=== PATIENT | female | born 1975 | race Caucasian/White ===

== ENCOUNTER 2016-12-27 15:25 | Emergency (ER) | payer OTHER ==
[~2016-12-27] VITALS: Ht 162.6 cm; Wt 103.4 kg
[~2016-12-27 15:25] MED LIST: ACET50TA PO; ANUS2.5C2 PR; DOCU10CA PO; FLINCHW5 PO; LABE20TAB PO; MOM30SS PO; MOTR200T44 PO; PRIL40CA PO; TRAM100T PO
[2016-12-27 15:26] VITALS: BP 185/102
[2016-12-27] MEDS ORDERED: NAPR500T PO (17:47)
[2016-12-27] MEDS ORDERED: CYCL10TA PO (17:47)
== END 2016-12-27 18:10 | disposition home or self-care (01) ==
LOC: M ED 17:44
DX: M62.838 Other muscle spasm (principal); M25.511 Pain in right shoulder; Z91.030 Bee allergy status; I10 Essential (primary) hypertension; J45.909 Unspecified asthma, uncomplicated; K21.9 Gastro-esophageal reflux disease without esophagitis; E11.9 Type 2 diabetes mellitus without complications

== ENCOUNTER 2017-11-14 18:05 | Emergency (ER) | payer OTHER | END 2017-11-14 19:48 | disposition home or self-care (01) | LOC: M ED 18:05 | DX: S00.03XA Contusion of scalp, initial encounter (principal); S13.4XXA Sprain of ligaments of cervical spine, initial encounter; S60.222A Contusion of left hand, initial encounter; H60.92 Unspecified otitis externa, left ear; W19.XXXA Unspecified fall, initial encounter; Y92.098 Other place in other non-institutional residence as the place of occurrence of the external cause; I10 Essential (primary) hypertension; G43.909 Migraine, unspecified, not intractable, without status migrainosus; F17.210 Nicotine dependence, cigarettes, uncomplicated; Z91.030 Bee allergy status | CPT/HCPCS: 73130 ==

== ENCOUNTER 2018-01-29 17:15 | Emergency (ER) | payer OTHER ==
[2018-01-29] MEDS: NORCO, ANEXSIA 5/325MG TABLET (HYDROcodone/ACETAMINOPHEN) PO (19:46)
== END 2018-01-29 20:08 | disposition home or self-care (01) ==
LOC: M ED 17:15
DX: S22.32XA Fracture of one rib, left side, initial encounter for closed fracture (principal); R05 Cough; W18.09XA Striking against other object with subsequent fall, initial encounter; Y92.9 Unspecified place or not applicable; Y93.9 Activity, unspecified; Y99.9 Unspecified external cause status; I10 Essential (primary) hypertension; E66.9 Obesity, unspecified; F17.200 Nicotine dependence, unspecified, uncomplicated; Z91.030 Bee allergy status
CPT/HCPCS: 71101

== ENCOUNTER 2018-02-15 17:58 | Emergency (ER) | payer OTHER ==
[2018-02-15] MEDS: ACETAMINOPHEN 325 MG TAB PO (18:04)
== END 2018-02-15 20:00 | disposition home or self-care (01) ==
LOC: M ED 17:58
DX: S22.32XA Fracture of one rib, left side, initial encounter for closed fracture (principal); S02.32XA Fracture of orbital floor, left side, initial encounter for closed fracture; Y04.8XXA Assault by other bodily force, initial encounter; Y92.410 Unspecified street and highway as the place of occurrence of the external cause; R06.02 Shortness of breath; S22.31XD Fracture of one rib, right side, subsequent encounter for fracture with routine healing; I10 Essential (primary) hypertension; E11.9 Type 2 diabetes mellitus without complications; J45.909 Unspecified asthma, uncomplicated; K21.9 Gastro-esophageal reflux disease without esophagitis; Z86.718 Personal history of other venous thrombosis and embolism; F17.210 Nicotine dependence, cigarettes, uncomplicated; Z91.030 Bee allergy status
CPT/HCPCS: 71101

== ENCOUNTER 2018-04-17 20:39 | Emergency (ER) | payer OTHER ==
[2018-04-17] MEDS: NORCO, ANEXSIA 5/325MG TABLET (HYDROcodone/ACETAMINOPHEN) PO (22:36)
== END 2018-04-18 00:05 | disposition home or self-care (01) ==
LOC: M ED 04-18 00:05
DX: S62.630A Displaced fracture of distal phalanx of right index finger, initial encounter for closed fracture (principal); M25.532 Pain in left wrist; W21.05XA Struck by basketball, initial encounter; Y92.830 Public park as the place of occurrence of the external cause; E11.9 Type 2 diabetes mellitus without complications; I10 Essential (primary) hypertension; J45.909 Unspecified asthma, uncomplicated; K21.9 Gastro-esophageal reflux disease without esophagitis; M32.9 Systemic lupus erythematosus, unspecified; F17.200 Nicotine dependence, unspecified, uncomplicated; Z79.899 Other long term (current) drug therapy; Z91.030 Bee allergy status
CPT/HCPCS: 73110

== ENCOUNTER 2018-06-21 22:28 | Emergency (ER) | payer OTHER | END 2018-06-21 23:02 | disposition left against medical advice (07) | LOC: M ED 22:28 | DX: Z53.29 Procedure and treatment not carried out because of patient's decision for other reasons (principal) ==

== ENCOUNTER → 2018-07-12 | Outpatient (REF) | payer OTHER ==
[2018-07-12 17:09] LABS: AMORPHOUS SEDIMENT SMALL (NEGATIVE); APPEARANCE, URINE HAZY (CLEAR); BACTERIA, URINE AUTO 1+ (NEGATIVE); BILIRUBIN, URINE AUTO NEGATIVE (NEGATIVE); BLOOD, URINE BLOOD 1+ (NEGATIVE); COLOR, URINE YELLOW (YELLOW); GLUCOSE, URINE (UA) AUTO NEGATIVE (NEGATIVE); KETONE, URINE AUTO NEGATIVE (NEGATIVE); LEUKOCYTE ESTERASE, URINE AUTO NEGATIVE (NEGATIVE); MUCUS, URINE SMALL (NEGATIVE); NITRITE, URINE AUTO POSITIVE (NEGATIVE); PROTEIN, URINE AUTO NEGATIVE (NEGATIVE); RBC, URINE AUTO 1 /HPF (0-3); SPECIFIC GRAVITY URINE AUTO 1.009 (1.002-1.035); SQUAMOUS EPITHELIAL CELL UR AU 1 /HPF (0-6); UROBILINOGEN, URINE AUTO 0.2 mg/dL (0.0-2.0); WBC, URINE AUTO 3 /HPF (0-3)
== END ==
LOC: M LAB REF 16:43
DX: N39.0 Urinary tract infection, site not specified (principal)
CPT/HCPCS: 81001

== ENCOUNTER 2019-03-22 14:33 | Emergency (ER) | payer OTHER ==
[~2019-03-22] VITALS: Ht 162.6 cm; Wt 106.8 kg
[~2019-03-22 14:33] MED LIST changes: -ACET50TA PO; +AUGM875T28 PO; +CIPRODEX AS; +CYCL10TA PO; +HYDR-3715 PO; +IBUP-1022 PO; +MAPA500T2 PO; +NAPR-837 PO; +PRED20TA PO; +ROBA500T PO; +TESS100C PO; -TRAM100T PO; +TRAM100T21 PO; +VENTAER
[2019-03-22] MEDS ORDERED: NAPR-885 PO (14:40)
[2019-03-22] MEDS ORDERED: HYDR25TAB PO (14:40)
[2019-03-22 14:43] VITALS: BP 158/92
[2019-03-22] MEDS ORDERED: PENI500T PO (15:03)
== END 2019-03-22 15:23 | disposition home or self-care (01) ==
LOC: M ED 14:33
DX: J02.0 Streptococcal pharyngitis (principal); I10 Essential (primary) hypertension; F17.200 Nicotine dependence, unspecified, uncomplicated; Z91.030 Bee allergy status; Z79.899 Other long term (current) drug therapy; Z79.1 Long term (current) use of non-steroidal anti-inflammatories (NSAID)

== ENCOUNTER → 2019-06-05 | Outpatient (REF) | payer OTHER ==
[~2019-06-05] MED LIST changes: +HYDR25TAB PO; +NAPR-885 PO; +PENI500T PO
[2019-06-05 18:41] LABS: APPEARANCE, URINE CLOUDY (CLEAR); BACTERIA, URINE AUTO 3+ (NEGATIVE); BILIRUBIN, URINE AUTO NEGATIVE (NEGATIVE); BLOOD, URINE BLOOD 1+ (NEGATIVE); COLOR, URINE YELLOW (YELLOW); GLUCOSE, URINE (UA) AUTO NEGATIVE (NEGATIVE); KETONE, URINE AUTO NEGATIVE (NEGATIVE); LEUKOCYTE ESTERASE, URINE AUTO NEGATIVE (NEGATIVE); MUCUS, URINE SMALL (NEGATIVE); NITRITE, URINE AUTO POSITIVE (NEGATIVE); PROTEIN, URINE AUTO NEGATIVE (NEGATIVE); RBC, URINE AUTO 2 /HPF (0-3); SPECIFIC GRAVITY URINE AUTO 1.018 (1.002-1.035); SQUAMOUS EPITHELIAL CELL UR AU 1 /HPF (0-6); UROBILINOGEN, URINE AUTO 0.2 mg/dL (0.0-2.0); WBC, URINE AUTO 1 /HPF (0-3)
== END ==
LOC: M LAB REF 17:22
PROVIDERS: ATTEND Physician Assistant
DX: N39.0 Urinary tract infection, site not specified (principal)

== ENCOUNTER 2019-11-17 08:28 | Emergency (ER) | payer OTHER ==
[~2019-11-17] VITALS: Ht 162.6 cm; Wt 99.2 kg
[2019-11-17] MEDS ORDERED: CYCLOBENZAPRINE 5MG TABLET PO ONE (09:30)
[2019-11-17] MEDS ORDERED: KETOROLAC TROMETHAMINE 10 MG TAB PO ONE (10:00)
[2019-11-17 10:06] VITALS: BP 185/120
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
[2019-11-17] MEDS ORDERED: KETO10TAB PO (10:42)
[2019-11-17] MEDS ORDERED: CYCL5TAB PO (10:42)
== END 2019-11-17 10:51 | disposition home or self-care (01) ==
LOC: M ED 08:28
DX: S09.90XA Unspecified injury of head, initial encounter (principal); S05.12XA Contusion of eyeball and orbital tissues, left eye, initial encounter; M62.830 Muscle spasm of back; Y04.0XXA Assault by unarmed brawl or fight, initial encounter; Y92.89 Other specified places as the place of occurrence of the external cause; Y93.9 Activity, unspecified; Y99.9 Unspecified external cause status; E11.9 Type 2 diabetes mellitus without complications; I10 Essential (primary) hypertension; K21.9 Gastro-esophageal reflux disease without esophagitis; M32.9 Systemic lupus erythematosus, unspecified; G43.909 Migraine, unspecified, not intractable, without status migrainosus; J45.909 Unspecified asthma, uncomplicated; F17.200 Nicotine dependence, unspecified, uncomplicated; Z79.899 Other long term (current) drug therapy; Z91.030 Bee allergy status

== ENCOUNTER 2020-06-17 13:19 | Emergency (ER) | payer OTHER ==
[~2020-06-17] VITALS: Ht 162.6 cm; Wt 112.5 kg
[~2020-06-17 13:19] MED LIST changes: +CYCL-707 PO; -CYCL10TA PO; +CYCL5TAB PO; +KETO10TAB PO
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
[2020-06-17] MEDS ORDERED: KETOROLAC TROMETHAMINE 10 MG TAB PO ONE (16:30)
[2020-06-17] MEDS ORDERED: amLODIPine 10 MG TAB PO ONE (16:45)
--- NOTE | 2020-06-17 17:16 | REPVR ---
PROCEDURE INFORMATION: Exam: US Duplex Right Lower Extremity Veins, Limited Exam date and time: 06/17/2020 5:03 PM Age: 45 years old Clinical indication: Pain; Leg, upper; Right; Additional info: Swelling/pain TECHNIQUE: Imaging protocol: Real-time Duplex ultrasound of the Right Lower Extremity with 2-D morgan scale, color Doppler flow and spectral waveform analysis with image documentation. Limited exam was focused on the right lower extremity veins. COMPARISON: No relevant prior studies available. FINDINGS: Right deep veins: Unremarkable. The common femoral, femoral, proximal profunda femoral and popliteal veins are patent without thrombus. Normal Doppler waveforms. Normal compressibility and/or augmentation response. The femoral vein mid to distal is duplicated. Right superficial veins: Unremarkable. Saphenofemoral junction is patent without thrombus. Soft tissues: Unremarkable. IMPRESSION: No evidence of deep vein thrombosis. Electronically signed by: Dante Warren On 06/17/2020 17:16:17 PM
[2020-06-17 17:24] VITALS: BP 210/96
[2020-06-17 17:35] LABS: BASO % 0.4 % (0.0-1.0); EOS # 0.2 10^3/uL (0.0-0.5); HEMATOCRIT 41.6 % (36.0-47.0); HEMOGLOBIN 13.6 g/dl (12.0-15.5); LYMPH # 2.2 10^3/uL (1.5-5.0); LYMPH % 31.4 % (24.0-44.0); MEAN CORPUSCULAR HEMOGLOBIN 31.1 pg (27.0-33.0); MEAN CORPUSCULAR HGB CONC 32.7 g/dl (32.0-36.5); MEAN CORPUSCULAR VOLUME 95.2 fl (80.0-96.0); MONO # 0.4 10^3/uL (0.0-0.8); MONO % 5.5 % (0.0-5.0); NEUTROPHILS # 4.1 10^3/uL (1.5-8.5); NEUTROPHILS % 59.4 % (36.0-66.0); PLATELET COUNT, AUTOMATED 266 10^3/uL (150-450); RED BLOOD COUNT 4.37 10^6/uL (4.00-5.40); WHITE BLOOD COUNT 6.9 10^3/uL (4.0-10.0)
[2020-06-17 18:10] VITALS: BP 200/92
[2020-06-17] MEDS ORDERED: BACT800T5 PO (18:25)
[2020-06-17] MEDS ORDERED: LISI20TA20 PO (18:25)
--- NOTE | 2020-06-18 20:51 | ECGEPIP ---
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
== END 2020-06-17 18:38 | disposition home or self-care (01) ==
LOC: M ED 13:19
DX: M25.561 Pain in right knee (principal); I10 Essential (primary) hypertension; R22.43 Localized swelling, mass and lump, lower limb, bilateral; N39.0 Urinary tract infection, site not specified; E66.9 Obesity, unspecified; E11.9 Type 2 diabetes mellitus without complications; R51 Headache; J45.909 Unspecified asthma, uncomplicated; K21.9 Gastro-esophageal reflux disease without esophagitis; F17.200 Nicotine dependence, unspecified, uncomplicated; Z79.899 Other long term (current) drug therapy; Z91.030 Bee allergy status

== ENCOUNTER → 2020-11-12 | Outpatient (REF) | payer OTHER ==
[~2020-11-12] MED LIST changes: +BACT800T5 PO; +CIPR7.5D5 AS; -CIPRODEX AS; +HYDR-3490 PO; -HYDR25TAB PO; +LISI20TA20 PO
[2020-11-12 18:31] LABS: APPEARANCE, URINE HAZY (CLEAR); BACTERIA, URINE AUTO 3+ (NEGATIVE); BILIRUBIN, URINE AUTO NEGATIVE (NEGATIVE); BLOOD, URINE BLOOD 2+ (NEGATIVE); COLOR, URINE YELLOW (YELLOW); GLUCOSE, URINE (UA) AUTO NEGATIVE (NEGATIVE); KETONE, URINE AUTO NEGATIVE (NEGATIVE); LEUKOCYTE ESTERASE, URINE AUTO NEGATIVE (NEGATIVE); MUCUS, URINE SMALL (NEGATIVE); NITRITE, URINE AUTO NEGATIVE (NEGATIVE); PROTEIN, URINE AUTO 1+ mg/dL (NEGATIVE); RBC, URINE AUTO 1 /HPF (0-3); SPECIFIC GRAVITY URINE AUTO 1.018 (1.002-1.035); SQUAMOUS EPITHELIAL CELL UR AU 2 /HPF (0-6); UROBILINOGEN, URINE AUTO 0.2 mg/dL (0.0-2.0); WBC, URINE AUTO 1 /HPF (0-3)
== END ==
LOC: M LAB REF 16:49
PROVIDERS: ATTEND Nurse Practitioner Family
DX: R30.0 Dysuria (principal)

== ENCOUNTER → 2020-11-27 | Outpatient (REF) | payer OTHER ==
[2020-11-27 17:54] LABS: BASO # 0.1 10^3/uL (0.0-0.2); BASO % 0.7 % (0.0-1.0); EOS # 0.1 10^3/uL (0.0-0.5); EOS % 1.5 % (0.0-3.0); HEMATOCRIT 45.4 % (36.0-47.0); HEMOGLOBIN 14.7 g/dl (12.0-15.5); LYMPH # 2.1 10^3/uL (1.5-5.0); LYMPH % 29.1 % (24.0-44.0); MEAN CORPUSCULAR HEMOGLOBIN 31.9 pg (27.0-33.0); MEAN CORPUSCULAR HGB CONC 32.4 g/dl (32.0-36.5); MEAN CORPUSCULAR VOLUME 98.5 fl (80.0-96.0); MONO # 0.5 10^3/uL (0.0-0.8); MONO % 6.5 % (2.0-8.0); NEUTROPHILS # 4.6 10^3/uL (1.5-8.5); NEUTROPHILS % 62.1 % (36.0-66.0); PLATELET COUNT, AUTOMATED 322 10^3/uL (150-450); RED BLOOD COUNT 4.61 10^6/uL (4.00-5.40); WHITE BLOOD COUNT 7.3 10^3/uL (4.0-10.0)
[2020-11-27 18:18] LABS: HEMOGLOBIN A1c 5.5 %
[2020-11-27 18:21] LABS: ALBUMIN 3.7 GM/DL (3.2-5.2); ALT/SGPT 99 U/L (12-78); BILIRUBIN,TOTAL 0.5 MG/DL (0.2-1.0); BLOOD UREA NITROGEN 15 MG/DL (7-18); CALCIUM LEVEL 9.7 MG/DL (8.5-10.1); CARBON DIOXIDE LEVEL 30 MEQ/L (21-32); CHLORIDE LEVEL 101 MEQ/L (98-107); CHOLESTEROL LEVEL 239 MG/DL (<200); CHOLESTEROL RISK RATIO 6.828 (<5); CREATININE FOR GFR 0.96 MG/DL (0.55-1.30); FERRITIN 124 NG/ML (8-252); FREE T4 1.19 NG/DL (0.76-1.46); GLOMERULAR FILTRATION RATE > 60.0 (>58); GLUCOSE, FASTING 86 MG/DL (70-100); HDL CHOLESTEROL 35 MG/DL (>40); IRON (FE) 79 UG/DL (50-170); LDL CHOLESTEROL 168 MG/DL (<100); MAGNESIUM LEVEL 1.8 MG/DL (1.8-2.4); NON-HDL-C 204 MG/DL; POTASSIUM SERUM 4.1 MEQ/L (3.5-5.1); SODIUM LEVEL 139 MEQ/L (136-145); THYROID STIMULATING HORMONE 0.861 uIU/ML (0.358-3.740); TOTAL IRON BINDING CAPACITY 376 UG/DL (250-450); TOTAL PROTEIN 8.2 GM/DL (6.4-8.2); TRIGLYCERIDES LEVEL 182 MG/DL (<150)
[2020-11-27 18:23] LABS: TOTAL 25(OH) VITAMIN D 11.6 NG/ML (30.0-100.0); VITAMIN B12 LEVEL 570 PG/ML
[2020-11-27 18:24] LABS: FOLATE 4.7 NG/ML
== END ==
LOC: M LAB REF 16:19
PROVIDERS: ATTEND Nurse Practitioner Family
DX: E66.9 Obesity, unspecified (principal); I10 Essential (primary) hypertension; F17.200 Nicotine dependence, unspecified, uncomplicated

== ENCOUNTER → 2021-02-03 | Outpatient (REF) | payer OTHER ==
[~2021-02-03] MED LIST changes: +AMLO1TAB25; +HYDR50TAB; +LISI20TA33; +METO1TAB7; +OMEP40CA97 PO; +VITA50005
[2021-02-03 13:08] LABS: BASO % 0.6 % (0.0-1.0); EOS # 0.2 10^3/uL (0.0-0.5); HEMATOCRIT 42.7 % (36.0-47.0); HEMOGLOBIN 14.3 g/dl (12.0-15.5); LYMPH # 1.4 10^3/uL (1.5-5.0); LYMPH % 22.7 % (24.0-44.0); MEAN CORPUSCULAR HEMOGLOBIN 33.4 pg (27.0-33.0); MEAN CORPUSCULAR HGB CONC 33.5 g/dl (32.0-36.5); MEAN CORPUSCULAR VOLUME 99.8 fl (80.0-96.0); MONO # 0.4 10^3/uL (0.0-0.8); MONO % 6.3 % (2.0-8.0); NEUTROPHILS # 4.2 10^3/uL (1.5-8.5); NEUTROPHILS % 66.9 % (36.0-66.0); PLATELET COUNT, AUTOMATED 308 10^3/uL (150-450); RED BLOOD COUNT 4.28 10^6/uL (4.00-5.40); WHITE BLOOD COUNT 6.3 10^3/uL (4.0-10.0)
[2021-02-03 13:50] LABS: ERYTHROCYTE SEDIMENTATION RATE 59 mm/hr (0-20)
[2021-02-03 13:57] LABS: ALBUMIN 3.8 GM/DL (3.2-5.2); ALT/SGPT 107 U/L (12-78); BILIRUBIN,DIRECT 0.2 MG/DL (0.0-0.2); BILIRUBIN,TOTAL 0.6 MG/DL (0.2-1.0); BLOOD UREA NITROGEN 15 MG/DL (7-18); C REACTIVE PROTEIN QUANTITATIV 4.12 MG/DL (0.00-0.30); CALCIUM LEVEL 9.9 MG/DL (8.5-10.1); CARBON DIOXIDE LEVEL 27 MEQ/L (21-32); CHLORIDE LEVEL 104 MEQ/L (98-107); CREATININE FOR GFR 0.81 MG/DL (0.55-1.30); GLOMERULAR FILTRATION RATE > 60.0 (>58); GLUCOSE, FASTING 119 MG/DL (70-100); HEPATITIS B SURFACE ANTIGEN NEGATIVE (NEGATIVE); POTASSIUM SERUM 3.7 MEQ/L (3.5-5.1); RHEUMATOID FACTOR QUANT < 10.0 IU/ML (<15.0); SODIUM LEVEL 139 MEQ/L (136-145); TOTAL PROTEIN 7.9 GM/DL (6.4-8.2)
[2021-02-03 14:23] LABS: HEPATITIS B CORE ANTIBODY IGM NEGATIVE (NEGATIVE)
[2021-02-03 14:24] LABS: HEPATITIS A ANTIBODY IGM NEGATIVE (NEGATIVE); HIV 1&2 SCREEN CENTAUR NEGATIVE (NEGATIVE)
[2021-02-04 13:08] LABS: ANTINUCLEAR ANTIBODIES DIRECT Negative (Negative); CYTOMEGALOVIRUS IgG ANTIBODY >10.00 U/mL (0.00-0.59); CYTOMEGALOVIRUS IgM ANTIBODY <30.0 AU/mL (0.0-29.9)
== END ==
LOC: M LAB REF 12:07
PROVIDERS: ATTEND Nurse Practitioner Family
DX: R74.01 Elevation of levels of liver transaminase levels (principal); E66.9 Obesity, unspecified

== ENCOUNTER 2021-02-08 14:08 | Emergency (ER) | payer OTHER ==
[~2021-02-08] VITALS: Ht 162.6 cm; Wt 113.6 kg
[~2021-02-08 14:08] MED LIST changes: -AMLO1TAB25; -HYDR50TAB; -LISI20TA33; -METO1TAB7; -OMEP40CA97 PO; -VITA50005
--- NOTE | 2021-02-08 14:26 | REP ---
INDICATION: CHEST PAIN COMPARISON: 02/15/2018 TECHNIQUE: Portable AP view of the chest FINDINGS: The mediastinum and cardiac silhouette are stable and within normal limits for portable technique. The lung barron are clear without acute consolidation, effusion, or pneumothorax. Skeletal structures are intact. IMPRESSION: No acute cardiopulmonary process appreciated. <Electronically signed by Dom Shea > 02/08/21 [id number]
[2021-02-08 14:47] LABS: BASO # 0.1 10^3/uL (0.0-0.2); BASO % 0.7 % (0.0-1.0); EOS # 0.1 10^3/uL (0.0-0.5); EOS % 1.9 % (0.0-3.0); HEMATOCRIT 44.9 % (36.0-47.0); HEMOGLOBIN 15.1 g/dl (12.0-15.5); LYMPH # 1.7 10^3/uL (1.5-5.0); MEAN CORPUSCULAR HEMOGLOBIN 33.1 pg (27.0-33.0); MEAN CORPUSCULAR HGB CONC 33.6 g/dl (32.0-36.5); MEAN CORPUSCULAR VOLUME 98.5 fl (80.0-96.0); MONO # 0.4 10^3/uL (0.0-0.8); MONO % 5.2 % (2.0-8.0); NEUTROPHILS # 5.2 10^3/uL (1.5-8.5); NEUTROPHILS % 68.9 % (36.0-66.0); PLATELET COUNT, AUTOMATED 313 10^3/uL (150-450); RED BLOOD COUNT 4.56 10^6/uL (4.00-5.40); WHITE BLOOD COUNT 7.6 10^3/uL (4.0-10.0)
[2021-02-08] MEDS ORDERED: VITA50005 (14:48)
[2021-02-08] MEDS ORDERED: LISI20TA33 (14:48)
[2021-02-08] MEDS ORDERED: AMLO1TAB25 (14:48)
[2021-02-08] MEDS ORDERED: HYDR50TAB (14:48)
[2021-02-08] MEDS ORDERED: METO1TAB7 (14:48)
[2021-02-08 14:58] LABS: INR 0.93; PROTHROMBIN TIME 12.7 SECONDS (12.5-14.3)
[2021-02-08 14:59] LABS: PARTIAL THROMBOPLASTIN TIME 28.9 SECONDS (24.2-38.5)
[2021-02-08 15:27] LABS: ALBUMIN 3.8 GM/DL (3.2-5.2); ALT/SGPT 109 U/L (12-78); BILIRUBIN,DIRECT 0.3 MG/DL (0.0-0.2); BILIRUBIN,TOTAL 0.7 MG/DL (0.2-1.0); BLOOD UREA NITROGEN 15 MG/DL (7-18); CALCIUM LEVEL 9.5 MG/DL (8.5-10.1); CARBON DIOXIDE LEVEL 30 MEQ/L (21-32); CHLORIDE LEVEL 102 MEQ/L (98-107); CK-MB VALUE MASS < 1.0 NG/ML (<3.6); CPK CREATINE PHOSPHOKINASE 35 U/L (26-192); CREATININE FOR GFR 0.88 MG/DL (0.55-1.30); FREE T4 1.32 NG/DL (0.76-1.46); GLOMERULAR FILTRATION RATE > 60.0 (>58); GLUCOSE, FASTING 127 MG/DL (70-100); LIPASE 215 U/L (73-393); MAGNESIUM LEVEL 1.6 MG/DL (1.8-2.4); MB/CK RELATIVE INDEX 2.86 (< OR =4); POTASSIUM SERUM 3.6 MEQ/L (3.5-5.1); SODIUM LEVEL 139 MEQ/L (136-145); THYROID STIMULATING HORMONE 0.711 uIU/ML (0.358-3.740); TOTAL PROTEIN 8.3 GM/DL (6.4-8.2); TROPONIN I < 0.02 NG/ML (< 0.10)
[2021-02-08] MEDS ORDERED: PANTOPRAZOLE 40MG VIAL (C9113 PER 1) IV ONE (15:30)
[2021-02-08] MEDS ORDERED: ASPIRIN 81 MG CHEW TABLET PO ONE (15:30)
[2021-02-08] MEDS ORDERED: MORPHINE 4 MG/ML 1ML VIAL/SYRINGE (J2270) IV ONE ×2 (15:30→17:30)
[2021-02-08] MEDS ORDERED: ISOVUE-370 76% 100ML VIAL As Ordered ONE (15:38)
--- NOTE | 2021-02-08 17:31 | REPVR ---
PROCEDURE INFORMATION: Exam: CTA Chest With Contrast Exam date and time: 02/08/2021 5:08 PM Age: 45 years old Clinical indication: Shortness of breath; Additional info: R/O pe TECHNIQUE: Imaging protocol: Computed tomographic angiography of the chest with contrast. Axial, coronal and sagittal reformatted images were created and reviewed. 3D rendering (Not supervised by radiologist): MIP and/or 3D reconstructed images were created by the technologist. Radiation optimization: All CT scans at this facility use at least one of these dose optimization techniques: automated exposure control; mA and/or kV adjustment per patient size (includes targeted exams where dose is matched to clinical indication); or iterative reconstruction. Contrast material: ISOVUE 370; Contrast volume: 100 ml; Contrast route: INTRAVENOUS (IV); COMPARISON: CT ANGIO CHEST 08/12/2016 3:12 AM FINDINGS: Pulmonary arteries: Contrast opacification satisfactory. No intraluminal filling defect. Aorta: Unremarkable. No aneurysm or dissection. Lungs: Mild peribronchial thickening, suggestive of airway inflammation. No consolidation. Pleural spaces: Unremarkable. No pneumothorax. No pleural effusion. Heart: Unremarkable. No cardiomegaly. No pericardial effusion. Lymph nodes: No pathologically enlarged lymph nodes. Bones/joints: No acute osseous abnormality. Mild degenerative changes. Soft tissues: Unremarkable. IMPRESSION: 1. No CT evidence of pulmonary embolism. 2. Additional findings, as above. Electronically signed by: Chapo Sellers On 02/08/2021 17:30:34 PM
[2021-02-08 17:34] LABS: CK-MB VALUE MASS < 1.0 NG/ML (<3.6); CPK CREATINE PHOSPHOKINASE 32 U/L (26-192); MB/CK RELATIVE INDEX 3.12 (< OR =4); TROPONIN I < 0.02 NG/ML (< 0.10)
--- NOTE | 2021-02-08 17:35 | REPVR ---
PROCEDURE INFORMATION: Exam: CT Abdomen And Pelvis With Contrast Exam date and time: 02/08/2021 5:08 PM Age: 45 years old Clinical indication: Abdominal tenderness; Additional info: R/O pe, cp, luq abd pain TECHNIQUE: Imaging protocol: Computed tomography of the abdomen and pelvis with contrast. Axial, coronal and sagittal reformatted images were created and reviewed. Radiation optimization: All CT scans at this facility use at least one of these dose optimization techniques: automated exposure control; mA and/or kV adjustment per patient size (includes targeted exams where dose is matched to clinical indication); or iterative reconstruction. Contrast material: ISOUVE 370; Contrast volume: 100 ml; Contrast route: INTRAVENOUS (IV); COMPARISON: No relevant prior studies available. FINDINGS: Liver: Mild hepatomegaly. Diffuse hepatic steatosis. Gallbladder and bile ducts: Status post cholecystectomy. No biliary ductal dilatation. Pancreas: Unremarkable. Spleen: Unremarkable. Adrenal glands: Normal. No mass. Kidneys and ureters: No mass. No radiodense calculi. No hydronephrosis. Stomach and bowel: Questionable mild wall thickening of the proximal small bowel loops in the left upper quadrant. Submucosal fat deposition in the colon, compatible with chronic inflammation. No obstruction. No pneumatosis. Appendix: Normal. Intraperitoneal space: No free fluid. No organized fluid collection. No free air. Vasculature: Mild atherosclerotic disease. No aneurysm or dissection. Lymph nodes: No pathologically enlarged lymph nodes. Urinary bladder: Unremarkable as visualized. Reproductive: Unremarkable. Bones/joints: No acute osseous abnormality. Soft tissues: Unremarkable. IMPRESSION: 1. Questionable mild wall thickening of the proximal small bowel loops in the left upper quadrant. Mild nonspecific enteritis could produce this appearance. 2. Additional findings, as above. Electronically signed by: Chapo Sellers On 02/08/2021 17:35:11 PM
[2021-02-08] MEDS ORDERED: GI COCKTAIL 50ML BTL(HYOSCYAMINE/MAALOX/LIDOCAINE VISCOUS)(1:3:1) PO ONE (17:40)
[2021-02-08 17:57] LABS: C REACTIVE PROTEIN QUANTITATIV 2.63 MG/DL (0.00-0.30); NT-PRO BNP 68 PG/ML (<125)
[2021-02-08 18:03] LABS: D-DIMER QUANT 330.73 ng/ml (<500)
[2021-02-08 18:19] LABS: HEPATITIS B SURFACE ANTIGEN NEGATIVE (NEGATIVE)
[2021-02-08 18:35] LABS: ERYTHROCYTE SEDIMENTATION RATE 56 mm/hr (0-20)
[2021-02-08 18:46] LABS: HEPATITIS B CORE ANTIBODY IGM NEGATIVE (NEGATIVE)
[2021-02-08 18:49] LABS: HEPATITIS A ANTIBODY IGM NEGATIVE (NEGATIVE)
[2021-02-08 19:51] LABS: CK-MB VALUE MASS < 1.0 NG/ML (<3.6); CPK CREATINE PHOSPHOKINASE 29 U/L (26-192); MB/CK RELATIVE INDEX 3.45 (< OR =4); TROPONIN I < 0.02 NG/ML (< 0.10)
[2021-02-08] MEDS ORDERED: OMEP40CA97 PO (19:56)
[2021-02-08 20:05] VITALS: BP 154/80
--- NOTE | 2021-02-09 05:55 | ECGEPIP ---
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
--- NOTE | 2021-02-09 05:59 | ECGEPIP ---
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
--- NOTE | 2021-02-09 06:03 | ECGEPIP ---
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
== END 2021-02-08 20:23 | disposition home or self-care (01) ==
LOC: M ED 14:08
DX: R94.31 Abnormal electrocardiogram [ECG] [EKG] (principal); I10 Essential (primary) hypertension; F41.9 Anxiety disorder, unspecified; R74.01 Elevation of levels of liver transaminase levels; K52.9 Noninfective gastroenteritis and colitis, unspecified; K21.9 Gastro-esophageal reflux disease without esophagitis; J20.9 Acute bronchitis, unspecified; M94.0 Chondrocostal junction syndrome [Tietze]; E66.9 Obesity, unspecified; E11.9 Type 2 diabetes mellitus without complications; E78.5 Hyperlipidemia, unspecified; J45.909 Unspecified asthma, uncomplicated; G43.909 Migraine, unspecified, not intractable, without status migrainosus; F17.200 Nicotine dependence, unspecified, uncomplicated; K76.0 Fatty (change of) liver, not elsewhere classified; Z91.030 Bee allergy status
CPT/HCPCS: 71045; 71275; 74177; 80048; 80076; 82550; 82553; 83690; 83735; 83880; 84439; 84443; 85025; 85379; 85610; 85652; 85730; 86140; 86705; 86709; 86803; 87340; 87798; 93005; 93041; 94760; 96374; 96375; 99285; C9113; J2270; Q9967

== ENCOUNTER 2021-07-04 12:37 | Emergency (ER) | payer OTHER ==
[~2021-07-04] VITALS: Ht 162.6 cm; Wt 122.7 kg
[~2021-07-04 12:37] MED LIST changes: +AMLO1TAB25; +ERGO500029; +HYDR50TAB; +LISI20TA33; +METO1TAB7; +OMEP40CA4 PO
[2021-07-04] MEDS ORDERED: traMADol 50 MG TAB PO ONE (13:10)
[2021-07-04] MEDS ORDERED: ACETAMINOPHEN 325 MG TAB PO ONE (13:10)
--- NOTE | 2021-07-04 14:10 | REP ---
INDICATION: pain COMPARISON: None. TECHNIQUE: AP and lateral views of the sacrum and coccyx. FINDINGS: Sacrum and coccyx are relatively age-appropriate. There is chronic grade 1 spondylolysis and spondylolisthesis at the L5-S1 level including endplate sclerosis, osteophytosis, facet hypertrophy, disc space narrowing and roughly 8.5 mm of anterolisthesis. IMPRESSION: Chronic spondylolysis and spondylolisthesis at the L5-S1 level. <Electronically signed by Dom Shea > 07/04/21 [id number]
--- NOTE | 2021-07-04 14:10 | REP ---
INDICATION: low back pain COMPARISON: None. TECHNIQUE: AP, lateral, bilateral oblique, and coned-down views of the lumbar spine. FINDINGS: Chronic L5 spondylolysis with grade 1 anterolisthesis as well as associated endplate sclerosis, disc space narrowing and facet hypertrophy. Remainder of the lumbosacral spine is age-appropriate and grossly within normal limits. IMPRESSION: Chronic spondylolysis and spondylolisthesis at the L5-S1 level. <Electronically signed by Dom Shea > 07/04/21 [id number]
[2021-07-04] MEDS ORDERED: MEDR4PAK PO (14:36)
[2021-07-04] MEDS ORDERED: ULTR50TA8 PO (14:39)
[2021-07-04] MEDS ORDERED: LIDO5DIS41 TD (14:39)
[2021-07-04 14:54] VITALS: BP 163/96
== END 2021-07-04 15:07 | disposition home or self-care (01) ==
LOC: M ED 12:37
DX: M47.817 Spondylosis without myelopathy or radiculopathy, lumbosacral region (principal); M43.17 Spondylolisthesis, lumbosacral region; G43.909 Migraine, unspecified, not intractable, without status migrainosus; I10 Essential (primary) hypertension; J45.909 Unspecified asthma, uncomplicated; K21.9 Gastro-esophageal reflux disease without esophagitis; E11.9 Type 2 diabetes mellitus without complications; F17.200 Nicotine dependence, unspecified, uncomplicated; Z79.899 Other long term (current) drug therapy; Z91.030 Bee allergy status

== ENCOUNTER 2022-04-30 18:29 | Emergency (ER) | payer OTHER ==
[~2022-04-30] VITALS: Ht 152.4 cm; Wt 109.2 kg
[~2022-04-30 18:29] MED LIST changes: +LIDO5DIS41 TD; -LISI20TA20 PO; +LISI20TA37 PO; +MEDR4PAK PO; +ULTR50TA8 PO
[2022-04-30] MEDS ORDERED: KETOROLAC 30 MG/ML 1ML VIAL IM ONE (21:15)
[2022-04-30] MEDS ORDERED: KETO10TAB PO (21:16)
[2022-04-30 21:51] VITALS: BP 152/97
== END 2022-04-30 21:50 | disposition home or self-care (01) ==
LOC: M ED 18:29
DX: S86.112A Strain of other muscle(s) and tendon(s) of posterior muscle group at lower leg level, left leg, initial encounter (principal); Y99.0 Civilian activity done for income or pay; Z79.899 Other long term (current) drug therapy; Z91.030 Bee allergy status
CPT/HCPCS: 96372; 99284; J1885

== ENCOUNTER → 2022-08-30 | Outpatient (REF) | payer OTHER ==
[2022-08-30 13:33] LABS: CHOLESTEROL RISK RATIO 5.09 (<5); HDL CHOLESTEROL 38.7 MG/DL (>40); LDL CHOLESTEROL 128.3 MG/DL (<100)
== END ==
LOC: M LAB REF 12:33
PROVIDERS: ATTEND Nurse Practitioner Family
DX: E78.5 Hyperlipidemia, unspecified (principal)

== ENCOUNTER → 2023-01-03 | Outpatient (CLI) | payer OTHER ==
[2023-01-03 13:43] LABS: HEMOGLOBIN A1c 5.4 % (4.0-6.0)
== END ==
LOC: M WUC 08:53
PROVIDERS: ATTEND Surgery
DX: Z86.39 Personal history of other endocrine, nutritional and metabolic disease (principal)

== ENCOUNTER → 2023-02-15 | Outpatient (REF) | payer OTHER ==
[2023-02-15 18:24] LABS: BASO % 0.5 % (0.0-1.0); EOS # 0.2 10^3/uL (0.0-0.5); EOS % 3.1 % (0.0-3.0); HEMATOCRIT 35.6 % (36.0-47.0); LYMPH # 2.1 10^3/uL (1.5-5.0); LYMPH % 33.1 % (24.0-44.0); MEAN CORPUSCULAR HEMOGLOBIN 32.2 pg (27.0-33.0); MEAN CORPUSCULAR HGB CONC 33.7 g/dl (32.0-36.5); MEAN CORPUSCULAR VOLUME 95.4 fl (80.0-96.0); MONO # 0.3 10^3/uL (0.0-0.8); NEUTROPHILS # 3.7 10^3/uL (1.5-8.5); NEUTROPHILS % 57.8 % (36.0-66.0); PLATELET COUNT, AUTOMATED 359 10^3/uL (150-450); RED BLOOD COUNT 3.73 10^6/uL (4.00-5.40); WHITE BLOOD COUNT 6.4 10^3/uL (4.0-10.0)
[2023-02-15 18:46] LABS: HEMOGLOBIN A1c 5.5 % (4.0-6.0)
[2023-02-15 18:53] LABS: THYROID STIMULATING HORMONE 1.429 uIU/ML (0.55-4.78)
[2023-02-15 18:54] LABS: ALBUMIN 3.6 G/DL (3.2-5.2); ALKALINE PHOSPHATASE 188 U/L (46-116); ALT/SGPT 53 U/L (7.0-40); AST/SGOT 47 U/L (<34); BILIRUBIN,TOTAL 0.5 MG/DL (0.3-1.2); BLOOD UREA NITROGEN 17 MG/DL (9-23); CALCIUM LEVEL 9.2 MG/DL (8.5-10.1); CARBON DIOXIDE LEVEL 28 MMOL/L (20-31); CHLORIDE LEVEL 102 MMOL/L (98-107); CHOLESTEROL LEVEL 137 MG/DL (<200); CHOLESTEROL RISK RATIO 2.87 (<5); CREATININE FOR GFR 0.92 MG/DL (0.55-1.30); GLOMERULAR FILTRATION RATE > 60.0 (>58); GLUCOSE, FASTING 83 MG/DL (60-100); HDL CHOLESTEROL 47.7 MG/DL (>40); LDL CHOLESTEROL 57.1 MG/DL (<100); NON-HDL-C 89.3 MG/DL; POTASSIUM SERUM 4.9 MMOL/L (3.5-5.1); SODIUM LEVEL 139 MMOL/L (136-145); TOTAL 25(OH) VITAMIN D 34.9 NG/ML (20.0-100.0); TOTAL PROTEIN 7.4 G/DL (5.7-8.2); TRIGLYCERIDES LEVEL 161 MG/DL (<150)
== END ==
LOC: M LAB REF 17:35
PROVIDERS: ATTEND Nurse Practitioner Family
DX: Z13.228 Encounter for screening for other metabolic disorders (principal)

== ENCOUNTER → 2023-08-04 | Outpatient (CLI) | payer OTHER | LOC: M SOG 07:59 | PROVIDERS: ATTEND Orthopaedic Surgery | DX: M25.562 Pain in left knee (principal); M25.561 Pain in right knee; M76.891 Other specified enthesopathies of right lower limb, excluding foot; M76.892 Other specified enthesopathies of left lower limb, excluding foot ==

== ENCOUNTER → 2023-08-08 | Outpatient (REF) | LOC: M PLAIMG 12:02 | PROVIDERS: ATTEND Internal Medicine | DX: R52 Pain, unspecified (principal) ==

== ENCOUNTER → 2023-11-30 | Outpatient (REF) | payer OTHER ==
[2023-11-30 12:38] LABS: BASO % 0.4 % (0.0-1.0); EOS # 0.1 10^3/uL (0.0-0.5); EOS % 1.8 % (0.0-3.0); HEMATOCRIT 39.9 % (36.0-47.0); HEMOGLOBIN 13.7 g/dl (12.0-15.5); LYMPH # 2.1 10^3/uL (1.5-5.0); LYMPH % 29.2 % (24.0-44.0); MEAN CORPUSCULAR HEMOGLOBIN 32.2 pg (27.0-33.0); MEAN CORPUSCULAR HGB CONC 34.3 g/dl (32.0-36.5); MEAN CORPUSCULAR VOLUME 93.9 fl (80.0-96.0); MONO # 0.5 10^3/uL (0.0-0.8); MONO % 6.5 % (2.0-8.0); NEUTROPHILS # 4.5 10^3/uL (1.5-8.5); NEUTROPHILS % 61.8 % (36.0-66.0); PLATELET COUNT, AUTOMATED 344 10^3/uL (150-450); RED BLOOD COUNT 4.25 10^6/uL (4.00-5.40); WHITE BLOOD COUNT 7.2 10^3/uL (4.0-10.0)
[2023-11-30 13:10] LABS: ALBUMIN 3.5 G/DL (3.2-5.2); ALKALINE PHOSPHATASE 218 U/L (46-116); ALT/SGPT 49 U/L (7.0-40); AST/SGOT 41 U/L (<34); BILIRUBIN,TOTAL 0.7 MG/DL (0.3-1.2); BLOOD UREA NITROGEN 26 MG/DL (9-23); CALCIUM LEVEL 8.8 MG/DL (8.5-10.1); CARBON DIOXIDE LEVEL 31 MMOL/L (20-31); CHLORIDE LEVEL 104 MMOL/L (98-107); CREATININE FOR GFR 0.94 MG/DL (0.55-1.30); GLOMERULAR FILTRATION RATE > 60.0 (>58); GLUCOSE, FASTING 95 MG/DL (60-100); POTASSIUM SERUM 3.7 MMOL/L (3.5-5.1); SODIUM LEVEL 140 MMOL/L (136-145); TOTAL PROTEIN 7.3 G/DL (5.7-8.2)
== END ==
LOC: M LAB REF 11:25
PROVIDERS: ATTEND Nurse Practitioner Family
DX: R39.9 Unspecified symptoms and signs involving the genitourinary system (principal); B96.4 Proteus (mirabilis) (morganii) as the cause of diseases classified elsewhere

== ENCOUNTER → 2024-01-10 | Outpatient (CLI) | payer OTHER | LOC: M PLAIMG 06:52 | PROVIDERS: ATTEND Orthopaedic Surgery | DX: M47.817 Spondylosis without myelopathy or radiculopathy, lumbosacral region (principal) ==

== ENCOUNTER → 2024-03-06 | Outpatient (REF) | payer OTHER ==
[2024-03-06 13:36] LABS: THYROID STIMULATING HORMONE 0.759 uIU/ML (0.55-4.78)
[2024-03-06 13:38] LABS: TOTAL 25(OH) VITAMIN D 22.7 NG/ML (20.0-100.0)
[2024-03-06 13:39] LABS: CHOLESTEROL RISK RATIO 3.54 (<5); HDL CHOLESTEROL 44.6 MG/DL (>40); MAGNESIUM LEVEL 1.8 MG/DL (1.8-2.4); NON-HDL-C 113.4 MG/DL; PERCENT SATURATION 20.8 % (13.2-45.0)
[2024-03-06 13:41] LABS: FOLATE 7.19 NG/ML (>5.4)
[2024-03-06 14:16] LABS: HEMOGLOBIN A1c 5.1 % (4.0-6.0)
== END ==
LOC: M LAB REF 12:11
PROVIDERS: ATTEND Nurse Practitioner Family
DX: Z98.84 Bariatric surgery status (principal); E66.01 Morbid (severe) obesity due to excess calories; E55.9 Vitamin D deficiency, unspecified

== ENCOUNTER → 2024-05-02 | Outpatient (CLI) | payer OTHER | LOC: M RAD 08:35 | PROVIDERS: ATTEND Nurse Practitioner Family | DX: R07.9 Chest pain, unspecified (principal) ==

== ENCOUNTER → 2024-05-10 | Outpatient (CLI) | payer OTHER | LOC: M SOG 07:49 | PROVIDERS: ATTEND Orthopaedic Surgery | DX: M17.0 Bilateral primary osteoarthritis of knee (principal) ==

== ENCOUNTER → 2024-08-16 | Outpatient (REF) | payer OTHER ==
[~2024-08-16] MED LIST changes: -CYCL5TAB PO; +CYCL5TAB4 PO
[2024-08-16 13:51] LABS: BASO % 0.2 % (0.0-1.0); HEMOGLOBIN 14.8 g/dl (12.0-15.5); LYMPH # 1.8 10^3/uL (1.5-5.0); LYMPH % 13.9 % (24.0-44.0); MEAN CORPUSCULAR HGB CONC 32.9 g/dl (32.0-36.5); MEAN CORPUSCULAR VOLUME 94.3 fl (80.0-96.0); MONO # 0.6 10^3/uL (0.0-0.8); MONO % 4.3 % (2.0-8.0); NEUTROPHILS # 10.8 10^3/uL (1.5-8.5); NEUTROPHILS % 81.2 % (36.0-66.0); PLATELET COUNT, AUTOMATED 422 10^3/uL (150-450); RED BLOOD COUNT 4.77 10^6/uL (4.00-5.40); WHITE BLOOD COUNT 13.3 10^3/uL (4.0-10.0)
[2024-08-16 13:57] LABS: IRON (FE) 96 UG/DL (50-170)
[2024-08-16 13:58] LABS: ALBUMIN 3.2 G/DL (3.2-5.2); ALKALINE PHOSPHATASE 169 U/L (35-104); ALT/SGPT 34 U/L (7.0-40); AST/SGOT 24 U/L (<34); BILIRUBIN,TOTAL 0.4 MG/DL (0.3-1.2); BLOOD UREA NITROGEN 18 MG/DL (9-23); CALCIUM LEVEL 10.3 MG/DL (8.5-10.1); CARBON DIOXIDE LEVEL 31 MMOL/L (20-31); CHLORIDE LEVEL 98 MMOL/L (98-107); CHOLESTEROL LEVEL 210 MG/DL (<200); CHOLESTEROL RISK RATIO 5.02 (<5); CREATININE FOR GFR 0.91 MG/DL (0.55-1.30); GLOMERULAR FILTRATION RATE > 60.0 (>58); GLUCOSE, FASTING 137 MG/DL (60-100); HDL CHOLESTEROL 41.8 MG/DL (>40); LDL CHOLESTEROL 129.2 MG/DL (<100); MAGNESIUM LEVEL 1.9 MG/DL (1.8-2.4); NON-HDL-C 168.2 MG/DL; PERCENT SATURATION 28.2 % (13.2-45.0); POTASSIUM SERUM 4.1 MMOL/L (3.5-5.1); SODIUM LEVEL 140 MMOL/L (136-145); TOTAL IRON BINDING CAPACITY 340 UG/DL (250-425); TOTAL PROTEIN 7.5 G/DL (5.7-8.2); TRIGLYCERIDES LEVEL 195 MG/DL (<150)
[2024-08-16 14:00] LABS: FOLATE 3.8 NG/ML (>5.4); VITAMIN B12 LEVEL 578 PG/ML (211-911)
[2024-08-16 14:19] LABS: HEMOGLOBIN A1c 5.4 % (4.0-6.0)
== END ==
LOC: M LAB REF 12:55
PROVIDERS: ATTEND Nurse Practitioner Family
DX: Z98.84 Bariatric surgery status (principal); E66.01 Morbid (severe) obesity due to excess calories

== ENCOUNTER → 2024-09-26 | Outpatient (REF) | payer OTHER ==
[2024-09-26 18:35] LABS: BASO % 0.4 % (0.0-1.0); EOS # 0.1 10^3/uL (0.0-0.5); EOS % 1.3 % (0.0-3.0); HEMATOCRIT 41.6 % (36.0-47.0); HEMOGLOBIN 13.9 g/dl (12.0-15.5); LYMPH # 1.6 10^3/uL (1.5-5.0); LYMPH % 22.8 % (24.0-44.0); MEAN CORPUSCULAR HEMOGLOBIN 32.9 pg (27.0-33.0); MEAN CORPUSCULAR HGB CONC 33.4 g/dl (32.0-36.5); MEAN CORPUSCULAR VOLUME 98.6 fl (80.0-96.0); MONO # 0.3 10^3/uL (0.0-0.8); MONO % 4.7 % (2.0-8.0); NEUTROPHILS # 5.1 10^3/uL (1.5-8.5); NEUTROPHILS % 70.7 % (36.0-66.0); PLATELET COUNT, AUTOMATED 339 10^3/uL (150-450); RED BLOOD COUNT 4.22 10^6/uL (4.00-5.40); WHITE BLOOD COUNT 7.2 10^3/uL (4.0-10.0)
[2024-09-26 19:05] LABS: ALBUMIN 3.4 G/DL (3.2-5.2); BILIRUBIN,TOTAL 0.9 MG/DL (0.3-1.2); CALCIUM LEVEL 9.6 MG/DL (8.5-10.1); CREATININE FOR GFR 1.04 MG/DL (0.55-1.30); MAGNESIUM LEVEL 1.8 MG/DL (1.8-2.4); POTASSIUM SERUM 4.9 MMOL/L (3.5-5.1); TOTAL PROTEIN 7.5 G/DL (5.7-8.2)
== END ==
LOC: M LAB REF 16:34
PROVIDERS: ATTEND Nurse Practitioner Family
DX: E66.01 Morbid (severe) obesity due to excess calories (principal)

== ENCOUNTER 2024-11-30 10:51 | Emergency (ER) | payer OTHER ==
[~2024-11-30] VITALS: Ht 162.6 cm; Wt 110.9 kg
[2024-11-30] MEDS: MORPHINE 4 MG/ML 1ML VIAL IV ONE (12:28)
[2024-11-30 12:29] LABS: BLOOD UREA NITROGEN 10 MG/DL (9-23); CALCIUM LEVEL 9.3 MG/DL (8.5-10.1); CARBON DIOXIDE LEVEL 34 MMOL/L (20-31); CHLORIDE LEVEL 90 MMOL/L (98-107); CREATININE FOR GFR 0.74 MG/DL (0.55-1.30); GLOMERULAR FILTRATION RATE > 60.0 (>58); GLUCOSE, FASTING 130 MG/DL (60-100); POTASSIUM SERUM 3.3 MMOL/L (3.5-5.1); SODIUM LEVEL 137 MMOL/L (136-145)
[2024-11-30] MEDS: KETOROLAC 30 MG/ML 1ML VIAL IV ONE (14:21)
[2024-11-30] MEDS: BOOSTRIX VACCINE (TETANUS/DIPHTH/ACEL. PERTUSSIS) 0.5ML SYR IM.IMMUN ONE (15:04)
[2024-11-30 16:14] VITALS: BP 173/93; TEMP 97.7; O2SAT 93
== END 2024-11-30 15:50 | disposition home or self-care (01) ==
LOC: M ED 10:51
DX: S06.0X0A Concussion without loss of consciousness, initial encounter (principal); S00.03XA Contusion of scalp, initial encounter; S80.12XA Contusion of left lower leg, initial encounter; S80.812A Abrasion, left lower leg, initial encounter; S40.022A Contusion of left upper arm, initial encounter; S32.058A Other fracture of fifth lumbar vertebra, initial encounter for closed fracture; W10.9XXA Fall (on) (from) unspecified stairs and steps, initial encounter; Y92.009 Unspecified place in unspecified non-institutional (private) residence as the place of occurrence of the external cause; Y93.89 Activity, other specified; Y99.9 Unspecified external cause status; M46.93 Unspecified inflammatory spondylopathy, cervicothoracic region; Z79.899 Other long term (current) drug therapy; Z91.030 Bee allergy status
CPT/HCPCS: 70450; 72072; 72110; 72125; 73030; 73502; 80047; 80048; 90471; 90715; 96374; 96375; 99284; J1885

== ENCOUNTER → 2024-12-16 | Outpatient (REF) | payer OTHER ==
[2024-12-16 13:26] LABS: ALBUMIN 2.9 G/DL (3.2-5.2); ALKALINE PHOSPHATASE 271 U/L (35-104); ALT/SGPT 75 U/L (7.0-40); AST/SGOT 170 U/L (<34); BILIRUBIN,TOTAL 1.4 MG/DL (0.3-1.2); BLOOD UREA NITROGEN 11 MG/DL (9-23); CALCIUM LEVEL 9.3 MG/DL (8.5-10.1); CARBON DIOXIDE LEVEL 34 MMOL/L (20-31); CHLORIDE LEVEL 93 MMOL/L (98-107); CHOLESTEROL LEVEL 239 MG/DL (<200); CHOLESTEROL RISK RATIO 7.61 (<5); CREATININE FOR GFR 0.65 MG/DL (0.55-1.30); GLOMERULAR FILTRATION RATE > 60.0 (>58); GLUCOSE, FASTING 122 MG/DL (60-100); HDL CHOLESTEROL 31.4 MG/DL (>40); LDL CHOLESTEROL 157.4 MG/DL (<100); NON-HDL-C 207.6 MG/DL; POTASSIUM SERUM 3.6 MMOL/L (3.5-5.1); SODIUM LEVEL 137 MMOL/L (136-145); TOTAL PROTEIN 7.3 G/DL (5.7-8.2); TRIGLYCERIDES LEVEL 251 MG/DL (<150)
== END ==
LOC: M LAB REF 12:07
PROVIDERS: ATTEND Nurse Practitioner Family
DX: R74.8 Abnormal levels of other serum enzymes (principal); E78.5 Hyperlipidemia, unspecified

== ENCOUNTER → 2025-01-08 | Outpatient (CLI) | payer OTHER | LOC: M RAD 08:10 | PROVIDERS: ATTEND Pain Medicine Interventional Pain Medicine | DX: M54.2 Cervicalgia (principal) ==

== ENCOUNTER → 2025-01-24 | Outpatient (CLI) | payer OTHER | LOC: M PLAIMG 08:37 | PROVIDERS: ATTEND Internal Medicine Cardiovascular Disease | DX: R94.31 Abnormal electrocardiogram [ECG] [EKG] (principal); I27.21 Secondary pulmonary arterial hypertension; I50.9 Heart failure, unspecified ==

== ENCOUNTER → 2025-02-06 | Outpatient (CLI) | payer OTHER ==
[~2025-02-06] MED LIST changes: +LIDO1ADH93 TD; -LIDO5DIS41 TD
[2025-02-06 14:33] LABS: ALBUMIN 2.5 G/DL (3.2-5.2); ALKALINE PHOSPHATASE 173 U/L (35-104); ALT/SGPT 27 U/L (7.0-40); AST/SGOT 76 U/L (<34); BILIRUBIN,TOTAL 1.5 MG/DL (0.3-1.2); BLOOD UREA NITROGEN 15 MG/DL (9-23); CALCIUM LEVEL 9.1 MG/DL (8.5-10.1); CARBON DIOXIDE LEVEL > 40.0 MMOL/L (20-31); CHLORIDE LEVEL 92 MMOL/L (98-107); CHOLESTEROL LEVEL 132 MG/DL (<200); CHOLESTEROL RISK RATIO 7.45 (<5); CREATININE FOR GFR 1.19 MG/DL (0.55-1.30); GLOMERULAR FILTRATION RATE 56.1 (>58); GLUCOSE, FASTING 90 MG/DL (60-100); HDL CHOLESTEROL 17.7 MG/DL (>40); LDL CHOLESTEROL 81.5 MG/DL (<100); NON-HDL-C 114.3 MG/DL; POTASSIUM SERUM 4.1 MMOL/L (3.5-5.1); SODIUM LEVEL 138 MMOL/L (136-145); TOTAL PROTEIN 6.9 G/DL (5.7-8.2); TRIGLYCERIDES LEVEL 164 MG/DL (<150)
== END ==
LOC: M PLALAB 11:02
PROVIDERS: ATTEND Internal Medicine Cardiovascular Disease
DX: I50.9 Heart failure, unspecified (principal); E78.00 Pure hypercholesterolemia, unspecified; I10 Essential (primary) hypertension

== ENCOUNTER → 2025-02-19 | Outpatient (CLI) | payer OTHER | LOC: M SLEEP HO 02-06 11:25 | PROVIDERS: ATTEND Internal Medicine Cardiovascular Disease | DX: I27.81 Cor pulmonale (chronic) (principal); G47.33 Obstructive sleep apnea (adult) (pediatric) ==

== ENCOUNTER → 2025-04-28 | Outpatient (REF) | payer OTHER ==
[2025-04-28 15:14] LABS: IRON (FE) 115.0 UG/DL (50-170)
[2025-04-28 15:17] LABS: VITAMIN B12 LEVEL 480.0 PG/ML (211-911)
== END ==
LOC: M LAB REF 14:33
PROVIDERS: ATTEND Student in an Organized Health Care Education/Training Program
DX: R20.0 Anesthesia of skin (principal); R20.2 Paresthesia of skin

== ENCOUNTER → 2025-05-02 | Outpatient (CLI) | payer OTHER ==
[2025-05-02 10:25] LABS: CALCIUM LEVEL 9.7 MG/DL (8.5-10.1); CARBON DIOXIDE LEVEL 30.0 MMOL/L (20-31); CHLORIDE LEVEL 100.0 MMOL/L (98-107); CREATININE FOR GFR 1.02 MG/DL (0.55-1.30); GLOMERULAR FILTRATION RATE 67.0 (>51); POTASSIUM SERUM 4.6 MMOL/L (3.5-5.1); SODIUM LEVEL 139.0 MMOL/L (136-145)
== END ==
LOC: M PLALAB 07:22 → M LAB 07:22
PROVIDERS: ATTEND Physician Assistant
DX: I50.32 Chronic diastolic (congestive) heart failure (principal)

== ENCOUNTER → 2025-05-21 | Outpatient (CLI) | payer OTHER ==
[~2025-05-21] MED LIST changes: -IBUP-1022 PO; +IBUP600T42 PO
== END ==
LOC: M SOG 06:48
PROVIDERS: ATTEND Orthopaedic Surgery
DX: M25.561 Pain in right knee (principal); M25.562 Pain in left knee; Z53.9 Procedure and treatment not carried out, unspecified reason

== ENCOUNTER → 2025-06-02 | Outpatient (CLI) | payer OTHER | LOC: M RAD 07:24 | PROVIDERS: ATTEND Physician Assistant | DX: Z87.891 Personal history of nicotine dependence (principal); R06.02 Shortness of breath ==

== ENCOUNTER → 2025-09-07 | Outpatient (CLI) | payer OTHER | LOC: M SLEEP 20:00 | PROVIDERS: ATTEND Physician Assistant | DX: G47.33 Obstructive sleep apnea (adult) (pediatric) (principal) ==

== ENCOUNTER 2025-09-16 07:58 | Inpatient (IN) | payer OTHER ==
[~2025-09-16] VITALS: Ht 162.6 cm; Wt 108.2 kg
[~2025-09-16 07:58] MED LIST changes: -ERGO500029; +ERGO500029 PO; -HYDR50TAB; +HYDR50TAB PO; -LISI20TA33; +LISI20TA33 PO
[2025-09-16] MEDS ORDERED: TORS20TA2 PO (08:47)
[2025-09-16] MEDS ORDERED: ALBU8.5H INH (08:47)
[2025-09-16] MEDS ORDERED: TIZA10TA PO (08:47)
[2025-09-16] MEDS ORDERED: JARD1TAB PO (08:47)
[2025-09-16] MEDS ORDERED: DIAZ5TAB PO ×2 (08:47→14:12)
[2025-09-16] MEDS ORDERED: FLUO-290 PO (08:47)
[2025-09-16] MEDS ORDERED: QUET100T2 PO (08:47)
[2025-09-16] MEDS ORDERED: IMIT50TA PO (08:47)
[2025-09-16] MEDS ORDERED: PRAZ2CAP PO (08:47)
[2025-09-16] MEDS ORDERED: TRAZ1TAB14 PO (08:47)
[2025-09-16] MEDS ORDERED: GABA-1172 PO (08:47)
[2025-09-16] MEDS ORDERED: ARIP10TA63 PO (08:47)
[2025-09-16] MEDS ORDERED: BUPR150T12 PO (08:47)
[2025-09-16 09:27] LABS: PLATELET COUNT, AUTOMATED 215 10^3/uL (150-450)
[2025-09-16] MEDS: ONDANSETRON 4MG/2ML VIAL IV ONE (09:29)
[2025-09-16] MEDS: MORPHINE 4 MG/ML 1 ML VIAL IV ONE (09:29)
[2025-09-16] MEDS: IPRATROPIUM 0.5 MG/ALBUTEROL 2.5 MG INH SOL UD 3 ML NEB SCH ×2 (09:36→20:58)
[2025-09-16 10:01] LABS: ALT/SGPT 51.0 U/L (7.0-40); AST/SGOT 241.0 U/L (<34)
[2025-09-16 10:10] LABS: ATYPICAL LYMPH 7 % (0-5); EOSINOPHILS 4 % (0-3); LYMPHOCYTES 31 % (16-44); MONOCYTES 5 % (0-5); NEUTROPHILS 53 % (28-66)
[2025-09-16 10:13] LABS: PLATELET ESTIMATE NORMAL (NORMAL)
[2025-09-16] MEDS: PANTOPRAZOLE 40MG VIAL IV ONE (10:55)
[2025-09-16] MEDS: NS 500 ML IV ONE (10:55)
[2025-09-16] MEDS ORDERED: ISOVUE-370 76% 100 ML VIAL As Ordered ONE (10:57)
[2025-09-16] MEDS: GASTROGRAFIN SOLUTION 30ML PO SCH (11:10)
[2025-09-16 11:15] LABS: VENOUS BASE EXCESS 8.3 (-2.0-2.0); VENOUS HCO3 34.4 MMOL/L (23.0-27.0); VENOUS O2 SATURATION 92.3 % (60.0-80.0); VENOUS PARTIAL PRESSURE CO2 54.6 mmHg (38.0-50.0); VENOUS PARTIAL PRESSURE O2 68.3 mmHg (30.0-50.0); VENOUS PH 7.417 UNITS (7.330-7.430); VENOUS STANDARD HCO3 31.9 MMOL/L; VENOUS TOTAL CO2 36.1 MMOL/L (24.0-28.0)
[2025-09-16] MEDS: KETOROLAC 30 MG/ML 1 ML VIAL IV ONE (14:09)
[2025-09-16] MEDS ORDERED: OMEP40CA4 PO (14:12)
[2025-09-16] MEDS ORDERED: METO1TAB33 PO (14:12)
[2025-09-16] MEDS ORDERED: HOME MED LIST COMPLETE! XX SCH (15:50)
[2025-09-16] MEDS: IPRATROPIUM 0.5 MG/ALBUTEROL 2.5 MG INH SOL UD 3 ML NEB ONE (15:59)
[2025-09-16] MEDS: cefTRIAXone SOD 2 GM in DEXTROSE 5% (D5W) ADV/MINI-BAG 50 ML IV ONE (16:55)
[2025-09-16] MEDS: DOXYCYCLINE HYCLATE 100 MG TABLET PO ONE (16:55)
[2025-09-16] MEDS: POTASSIUM CHLORIDE 10MEQ SR TABLET PO ONE (17:31)
[2025-09-16] MEDS ORDERED: ALBUTEROL 90 MCG/ACT 8 GM HFA INHALER INH PRN (18:35)
[2025-09-16] MEDS: LIDOCAINE 5% PATCH TD SCH (18:35)
[2025-09-16] MEDS: PIPERACILLIN/TAZOBACTAM SOD 3.375 GM in DEXTROSE 5% (D5W) ADV/MINI-BAG 50 ML IV SCH (20:11)
[2025-09-16] MEDS: SYMBICORT 160/4.5MCG INHALER 6GM INH SCH (20:58)
[2025-09-16] MEDS: GABAPENTIN 300 MG CAP PO SCH (21:42)
[2025-09-16] MEDS: traZODone 50 MG TAB PO SCH (21:43)
[2025-09-16] MEDS: PRAZOSIN 1 MG CAP PO SCH (21:43)
[2025-09-16] MEDS: VANCOMYCIN HCL 2,000 MG, VIAL MATE ADAPTER 1 EACH in NS 500 ML IV ONE (23:33)
[2025-09-17] VITALS (27 sets, daily range): BP systolic 100–130; BP diastolic 56–68; TEMP 97–98; O2SAT 85–98
[2025-09-17] MEDS: ACETAMINOPHEN 325 MG TAB PO SCH (00:53)
[2025-09-17 05:47] LABS: PLATELET COUNT, AUTOMATED 222 10^3/uL (150-450)
[2025-09-17] MEDS: VANCOMYCIN HCL 1,000 MG, VIAL MATE ADAPTER 1 EACH in NS 250 ML IV SCH (06:07)
[2025-09-17 06:14] LABS: CALCIUM LEVEL 8.1 MG/DL (8.5-10.1); CARBON DIOXIDE LEVEL 33.0 MMOL/L (20-31); CHLORIDE LEVEL 99.0 MMOL/L (98-107); CREATININE FOR GFR 0.82 MG/DL (0.55-1.30); GLOMERULAR FILTRATION RATE 87.1 (>51); POTASSIUM SERUM 4.1 MMOL/L (3.5-5.1); SODIUM LEVEL 139.0 MMOL/L (136-145)
[2025-09-17] MEDS: buPROPion **XL** 150 MG TABLET PO SCH (08:51)
[2025-09-17] MEDS: METOPROLOL SUCC. 100 MG *XL* TAB PO SCH (08:51)
[2025-09-17] MEDS: ENOXAPARIN 40 MG/0.4 ML SYRINGE (J1650 PER 10MG) SC SCH (08:52)
[2025-09-17] MEDS: OMEPRAZOLE 20MG CAP PO SCH (08:52)
[2025-09-17] MEDS ORDERED: PRED20TA PO (12:25)
[2025-09-17] MEDS ORDERED: ALBU8.5H INH (12:25)
[2025-09-17] MEDS ORDERED: AMOX875T2 PO (12:25)
[2025-09-17] MEDS ORDERED: SYMB16INH INH (12:25)
[2025-09-17] MEDS: PIPERACILLIN/TAZOBACTAM SOD 4.5 GM in DEXTROSE 5% (D5W) ADV/MINI-BAG 50 ML IV SCH (13:22)
[2025-09-18] VITALS (14 sets, daily range): BP systolic 109–133; BP diastolic 55–74; TEMP 97–97.5; O2SAT 78–98
[2025-09-18 06:30] LABS: PLATELET COUNT, AUTOMATED 289 10^3/uL (150-450)
[2025-09-18 06:55] LABS: CALCIUM LEVEL 8.0 MG/DL (8.5-10.1); CARBON DIOXIDE LEVEL 32.0 MMOL/L (20-31); CHLORIDE LEVEL 101.0 MMOL/L (98-107); CREATININE FOR GFR 0.93 MG/DL (0.55-1.30); GLOMERULAR FILTRATION RATE 74.9 (>51); POTASSIUM SERUM 4.7 MMOL/L (3.5-5.1); SODIUM LEVEL 140.0 MMOL/L (136-145)
[2025-09-18] MEDS ORDERED: ACETAMINOPHEN 325 MG TAB PO PRN (08:10)
== END 2025-09-18 12:40 | disposition left against medical advice (07) | DRG 190 ==
LOC: M ED 07:58 → M ED INP 18:50 → M PCU 09-17 00:30
PROVIDERS: ADMIT Student in an Organized Health Care Education/Training Program; ATTEND Student in an Organized Health Care Education/Training Program
DX: J44.1 Chronic obstructive pulmonary disease with (acute) exacerbation (principal); J96.01 Acute respiratory failure with hypoxia; J18.9 Pneumonia, unspecified organism; F17.210 Nicotine dependence, cigarettes, uncomplicated; R74.01 Elevation of levels of liver transaminase levels; J44.0 Chronic obstructive pulmonary disease with (acute) lower respiratory infection; Z79.899 Other long term (current) drug therapy; Z91.030 Bee allergy status